=== PATIENT | female | born 1995 | race Caucasian/White ===

== ENCOUNTER 2025-01-17 22:25 | Inpatient (IN) | payer OTHER ==
[2025-01-17 23:00] LABS: Amphetamine,Urine NEGATIVE (NEGATIVE); Barbiturate,Urine NEGATIVE (NEGATIVE); Benzodiazepine,Urine NEGATIVE (NEGATIVE); Cocaine,Urine NEGATIVE (NEGATIVE); Methadone,Urine NEGATIVE (NEGATIVE); Opiate,Urine NEGATIVE (NEGATIVE); PCP,Urine NEGATIVE (NEGATIVE); THC,Urine NEGATIVE (NEGATIVE)
[2025-01-17] MEDS: Lactated Ringers 1,000 ML IV SCH (23:05)
[2025-01-17] MEDS: Nubain 10 MG/ML IV ONE (23:06)
[2025-01-17 23:14] LABS: Hematocrit 33.6 % (34.1-44.9); Hemoglobin 10.6 g/dL (11.2-15.7); Mean Corpuscular Hemoglobin 27.2 pg (25.6-32.2); Mean Corpuscular Hgb Concent. 31.5 g/dL (32.2-35.5); Platelet Count 271 x10^3/uL (182-369); Red Blood Count 3.90 x10^6/uL (3.93-5.22); White Blood Count 16.0 x10^3/uL (3.98-10.04)
[2025-01-17 23:19] LABS: Glucose, Urine Negative (Negative); Protein,Urine Dip Trace (Negative); RBC 0-2 /HPF (0-5)
[2025-01-17 23:30] LABS: INR 0.84 (0.8-3.0); PROTIME 9.3 SECONDS (9.4-12.5); PTT 25.1 SECONDS (25.1-36.5)
[2025-01-17 23:56] LABS: ABO TYPING O; RH TYPING NEGATIVE
[2025-01-18] MEDS ORDERED: Astramorph-Pf 5 MG/10 ML ONE (00:37)
[2025-01-18] MEDS ORDERED: Pitocin 10 UNITS/ML ONE (00:37)
[2025-01-18] MEDS ORDERED: CEFAZOLIN SODIUM ONE (00:38)
[2025-01-18] MEDS: SOD CITRATE-CITRIC ACID SOLN PO SCH (00:39)
[2025-01-18] MEDS: Reglan 10 MG/2 ML IV SCH (00:39)
[2025-01-18] MEDS: Pepcid 20 MG VIAL IV SCH (00:39)
[2025-01-18] MEDS ORDERED: PHENYLEPHRINE HCL ONE (00:40)
--- NOTE | 2025-01-18 00:41 | PCM.HP ---
History of Present Illness - Chief Complaint Chief Complaint: Labor History of Present Illness: is a 29 year old female at 39 2/7 wks EGA patient of Dr Bowman who arrived to labor and delivery c/o contractions, she was scheduled for repeat on 01/[address] Bowman but came to [place] because mom drove her to the hospital and can't see well in the dark. She is karolyn every 2 to 3 minutes with SVE 2-3cm with progression of effacement per nursing. She has a history of substance abuse, last used meth in October and has completed a recovery program, she denies alcohol or any other illicit drug use. urine triage is negative on arrival. - Review of Systems Abdominal/Gastrointestinal: Other (contractions) All Other Systems: Reviewed and Negative Medications & Allergies Home Medications: Home Medication List Famotidine 20 mg [Pepcid 20 MG] 20 mg PO DAILY 01/17/25 [History Confirmed 01/17/25] Hydroxyzine HCl 25 mg [Atarax 25 mg] 25 mg PO DAILY 01/17/25 [History Confirmed 01/17/25] Nitrofurantoin Monohyd/M-Cryst [Nitrofurantoin [place]-Mcr 100 mg] 100 mg PO DAILY 01/17/25 [History Confirmed 01/17/25] Pnv No.95/Ferrous Fum/Folic AC [ Vitamin Tablet] 1 tab PO DAILY 01/17/25 [History Confirmed 01/17/25] Allergies/Adverse Reactions: Allergies Allergy/AdvReac Type Severity Reaction Status Date / Time latex AdvReac Hives Verified 01/17/25 23:34 - Social History Smoking Status: Current every day smoker How long have you smoked: 16 years Alcohol: None Drug Use: none - Social Determinants of Health Will the patient participate in the screening: Yes Do you worry about a steady place to live?: No Do you have any problems with any of the following?: No known problems In the past 12 months,have you had to go without utilities?: No Have you or anyone in your house had to go without enough: No Transportation Issues: Yes Has anyone in your support network made you feel unsafe?: No Does the patient want assistance with any of the above?: No - Physical Exam Vital Signs: Vital Signs - 24 hr Temp Pulse Resp BP Pulse Ox 01/17/25 23:15 98.2 F 108 H 16 137/88 96 General Appearance: no apparent distress Neurologic Exam: alert, oriented x 3 Respiratory Exam: normal breath sounds, lungs clear, No respiratory distress Cardiovascular Exam: regular rate/rhythm, normal heart sounds, normal peripheral pulses Gastrointestinal/Abdomen Exam: soft, normal bowel sounds, other (gravid term uterus. FHR 130's category 1. [place] q2-3 min), No tenderness, No mass Results - Labs Lab/Micro Results: Lab Results-Last 24 Hours 01/17/25 01/17/25 01/17/25 Range/Units 22:30 22:35 23:00 WBC 16.0 H (3.98-10.04) x10^3/uL RBC 3.90 L (3.93-5.22) x10^6/uL Hgb 10.6 L (11.2-15.7) g/dL Hct 33.6 L (34.1-44.9) % MCV 86.2 (79.4-94.8) fL MCH 27.2 (25.6-32.2) pg MCHC 31.5 L (32.2-35.5) g/dL RDW 14.0 (11.7-14.4) % Plt Count 271 (182-369) x10^3/uL MPV 10.1 (9.4-12.3) fL PT (9.4-12.5) SECONDS INR (0.8-3.0) APTT (25.1-36.5) SECONDS TSH 3rd Generation (0.470-4.680) mIU/L Urine Color Yellow (Yellow) Urine Appearance Clear (Clear) Urine pH 7.5 (4.6-8.0) Ur Specific [place] 1.010 (1.005-1.030) Urine Protein Trace A (Negative) Urine Glucose (UA) Negative (Negative) mg/dL Urine Ketones Negative (Negative) Urine Blood Negative (Negative) Urine Nitrite Negative (Negative) Urine Bilirubin Negative (Negative) Urine Urobilinogen 0.2 (0.2) mg/dL Ur Leukocyte Esterase Small A (Negative) U Hyaline Cast (Auto) NONE SEEN (0-2) /LPF Urine Microscopic RBC 0-2 (0-5) /HPF Urine Microscopic WBC 11-20 A (0-5) /HPF Ur Epithelial Cells None Seen (None Seen) /HPF Urine Bacteria None Seen (None Seen) /HPF Urine Culture Reflexed YES (NO) Urine Opiates Level NEGATIVE (NEGATIVE) Ur Methadone NEGATIVE (NEGATIVE) Urine Barbiturates NEGATIVE (NEGATIVE) Ur Phencyclidine (PCP) NEGATIVE (NEGATIVE) Urine Amphetamine NEGATIVE (NEGATIVE) U Benzodiazepine Level NEGATIVE (NEGATIVE) Urine Cocaine NEGATIVE (NEGATIVE) Urine Marijuana (THC) NEGATIVE (NEGATIVE) ABO Group Rh Factor Antibody Screen (NEGATIVE) 01/17/25 01/17/25 01/17/25 Range/Units 23:00 23:00 23:00 WBC (3.98-10.04) x10^3/uL RBC (3.93-5.22) x10^6/uL Hgb (11.2-15.7) g/dL Hct (34.1-44.9) % MCV (79.4-94.8) fL MCH (25.6-32.2) pg MCHC (32.2-35.5) g/dL RDW (11.7-14.4) % Plt Count (182-369) x10^3/uL MPV (9.4-12.3) fL PT 9.3 L (9.4-12.5) SECONDS INR 0.84 (0.8-3.0) APTT 25.1 (25.1-36.5) SECONDS TSH 3rd Generation 0.429 L (0.470-4.680) mIU/L Urine Color (Yellow) Urine Appearance (Clear) Urine pH (4.6-8.0) Ur Specific [place] (1.005-1.030) Urine Protein (Negative) Urine Glucose (UA) (Negative) mg/dL Urine Ketones (Negative) Urine Blood (Negative) Urine Nitrite (Negative) Urine Bilirubin (Negative) Urine Urobilinogen (0.2) mg/dL Ur Leukocyte Esterase (Negative) U Hyaline Cast (Auto) (0-2) /LPF Urine Microscopic RBC (0-5) /HPF Urine Microscopic WBC (0-5) /HPF Ur Epithelial Cells (None Seen) /HPF Urine Bacteria (None Seen) /HPF Urine Culture Reflexed (NO) Urine Opiates Level (NEGATIVE) Ur Methadone (NEGATIVE) Urine Barbiturates (NEGATIVE) Ur Phencyclidine (PCP) (NEGATIVE) Urine Amphetamine (NEGATIVE) U Benzodiazepine Level (NEGATIVE) Urine Cocaine (NEGATIVE) Urine Marijuana (THC) (NEGATIVE) ABO Group O Rh Factor NEGATIVE Antibody Screen NEGATIVE (NEGATIVE) Assessment/Plan (1) Active labor at term Current Visit: Yes Status: Acute Assessment & Plan: discussed risks, benefits and alternatives to repeat including but not limited to bleeding, infection and risk to organs including bladder and ureters. patient voiced understanding and consents to repeat . OR team has been notified and anesthesia is present on the unit Code(s): TAC4728 - (2) History of delivery Current Visit: Yes Status: Acute Code(s): Z98.891 - HISTORY OF UTERINE SCAR FROM PREVIOUS SURGERY (3) Methamphetamine abuse in remission Current Visit: Yes Status: Acute Code(s): F15.11 - OTHER STIMULANT ABUSE, IN REMISSION
[2025-01-18] MEDS ORDERED: Lactated Ringers 1,000 ML IV ONE ×2 (00:42→01:46)
[2025-01-18] MEDS ORDERED: Naropin 0.5% 30 ML VIAL ONE (01:34)
[2025-01-18] MEDS ORDERED: Epinephrine Preservative Free 1 MG/ML ONE (01:34)
[2025-01-18] MEDS ORDERED: Mylicon 80MG PO PRN (02:36)
[2025-01-18] MEDS ORDERED: CORTISONE 1% CREAM TP PRN (02:36)
[2025-01-18] MEDS ORDERED: Dulcolax 10 MG SUPP PR PRN (02:36)
[2025-01-18] MEDS ORDERED: Anucort-HC SUPPOSITORY PR PRN (02:36)
[2025-01-18] MEDS ORDERED: DEMEROL 50 MG IV PRN (02:39)
[2025-01-18] MEDS ORDERED: MORPHINE SULFATE 2 MG INJ IV PRN (02:39)
[2025-01-18] MEDS ORDERED: Narcan 0.4 MG/ML IV PRN (02:39)
[2025-01-18] MEDS ORDERED: HOLD NARCOTIC ANALGESICS AND SEDATIVES X24 HR MC PRN (02:39)
[2025-01-18] MEDS ORDERED: BENADRYL 50 MG/ML IV PRN (02:39)
[2025-01-18] MEDS ORDERED: PERCOCET TABLET 5/325MG PO PRN (02:39)
[2025-01-18] MEDS ORDERED: Dextrose 5%-Lr IV Solution 1000 ML 1,000 ML IV SCH (03:00)
[2025-01-18] MEDS: Zofran 4 MG/2 ML VIAL IV PRN (03:24)
[2025-01-18] MEDS: CLARITIN 10 MG PO PRN (03:53)
[2025-01-18 04:17] LABS: Glucose, Urine Negative (Negative); Protein,Urine Dip Trace (Negative); RBC 0-2 /HPF (0-5); WBC >100 /HPF (0-5)
[2025-01-18] MEDS: Nubain 10 MG/ML IV PRN (05:56)
[2025-01-18] MEDS: TORAdol 30 mg Injection IV PRN (08:56)
[2025-01-18] MEDS: LANSINOH 40 GM TOP PRN (10:56)
[2025-01-18 12:10] LABS: BASOPHIL % 0.2 % (0.1-1.2); Basophil (Absolute #) 0.02 x10^3/uL (0.01-0.08); Eosinophil (Absolute #) 0.07 x10^3/uL (0.04-0.36); Hematocrit 24.3 % (34.1-44.9); Hemoglobin 7.7 g/dL (11.2-15.7); IMMATURE GRAN # 0.05 x10^3u/L (0.001-0.031); IMMATURE GRAN % 0.5 % (0.001-0.429); Lymphocyte (Absolute #) 1.16 x10^3/uL (1.18-3.74); Mean Corpuscular Hemoglobin 27.2 pg (25.6-32.2); Mean Corpuscular Hgb Concent. 31.7 g/dL (32.2-35.5); Monocyte (Absolute #) 0.43 x10^3/uL (0.24-0.86); NUCLEATED RBC # 0.00 x10^3u/L (0.00-0.012); NUCLEATED RBC % 0.0 % (0.00-0.2); Platelet Count 227 x10^3/uL (182-369); Red Blood Count 2.83 x10^6/uL (3.93-5.22); White Blood Count 10.4 x10^3/uL (3.98-10.04)
[2025-01-18] MEDS: FERREX 150 PO SCH (14:18)
[2025-01-18] MEDS: TYLENOL EXTRA STRENGTH 500 MG PO PRN (14:18)
[2025-01-18] MEDS: Docusate Sodium 100 MG PO SCH (17:22)
[2025-01-18] MEDS: Rhogam Plus 300 MCG IM ONE (20:03)
[2025-01-19] MEDS ORDERED: NORCO 5/325 MG PO PRN (01:30)
--- NOTE | 2025-01-19 07:46 | PCM.NOTE ---
Date and Time: 01/19/25 0744 Subjective Assessment: pod 1 sp csection pt resting in bed and doing well able to tolerate diet and ambulate vss afebrile abd; soft incision with dressing intact with no soilage noted uterus; firm lochia; mild hgb; 7.7 a/p sp csection pod 1 postop anemia will repeat cbc today anticipate discharge tomorrow Objective Data Vital Signs: Vital Signs - 24 hr Temp Pulse Resp BP Pulse Ox 01/19/25 02:15 97.9 F 109 H 20 123/78 94 L 01/18/25 20:00 98.1 F 111 H 18 120/76 94 L 01/18/25 16:00 98.1 F 105 H 16 117/65 95 01/18/25 15:00 97 01/18/25 14:00 97 01/18/25 12:00 98.6 F 94 H 16 116/68 94 L 01/18/25 11:00 94 L 01/18/25 10:00 95 01/18/25 09:00 95 01/18/25 08:00 98.1 F 86 16 111/66 95 Pain Assessment - Last Documented Pain Intensity [Anterior/ 1 Posterior] Pain Intensity 3 Pain Scale Used [facility] Intake and Output: Intake & Output 01/16/25 01/17/25 01/18/25 01/19/25 11:59 11:59 11:59 11:59 Intake Total 50 Output Total 950 450 Balance -950 -400 Weight 58.967 kg Lab Results: Lab Results-Last 24 Hours 01/18/25 Range/Units 12:00 WBC 10.4 H (3.98-10.04) x10^3/uL RBC 2.83 L (3.93-5.22) x10^6/uL Hgb 7.7 L D (11.2-15.7) g/dL Hct 24.3 L (34.1-44.9) % MCV 85.9 (79.4-94.8) fL MCH 27.2 (25.6-32.2) pg MCHC 31.7 L (32.2-35.5) g/dL RDW 14.1 (11.7-14.4) % Plt Count 227 (182-369) x10^3/uL MPV 9.7 (9.4-12.3) fL Gran % 83.4 H (34.0-71.1) % Immature Gran % (Auto) 0.5 H (0.001-0.429) % Nucleat RBC Rel Count 0.0 (0.00-0.2) % Eos # (Auto) 0.07 (0.04-0.36) x10^3/uL Immature Gran # (Auto) 0.05 H (0.001-0.031) x10^3u/L Absolute Lymphs (auto) 1.16 L (1.18-3.74) x10^3/uL Absolute Monos (auto) 0.43 (0.24-0.86) x10^3/uL Absolute Nucleated RBC 0.00 (0.00-0.012) x10^3u/L Lymphocytes % 11.1 L (19.3-51.7) % Monocytes % 4.1 L (4.7-12.5) % Eosinophils % 0.7 (0.7-5.8) % Basophils % 0.2 (0.1-1.2) % Absolute Granulocytes 8.68 H (1.56-6.13) x10^3/uL Basophils # 0.02 (0.01-0.08) x10^3/uL Medications: Medications Generic Name Dose Route Start Last Admin Trade Name Linwoodq PRN Reason Stop Dose Admin Acetaminophen 500 - 1,000 mg 01/18/25 02:36 01/18/25 14:18 Acetaminophen 500 Mg Tablet PO 02/17/25 02:35 1,000 mg Q4H PRN PRN Administration MILD PAIN Hydrocodone Bitart/Acetaminophen 1 tab 01/19/25 01:30 Hydrocodone/Apap 5/325 1 Tab Tablet PO 01/24/25 01:29 Q4H PRN PRN SEVERE PAIN Bisacodyl 10 mg 01/18/25 02:36 Bisacodyl 10 Mg Supp.Rect OH 02/17/25 02:35 PRN PRN CONSTIPATION Docusate Sodium 100 mg 01/18/25 10:00 01/18/25 20:27 Docusate Sodium 100 Mg Capsule PO 02/17/25 09:59 100 mg BID QIAN Administration Emollient Ointment 0 gm 01/18/25 02:36 01/18/25 10:56 Lansinoh 40 Gm Tube TOP 02/17/25 02:35 40 gm PRN PRN Administration PAIN Hydrocortisone 0.5 gm 01/18/25 02:36 Hydrocortisone 1% Cream 28 Gm Tube TP 02/17/25 02:35 PRN PRN ITCHING Hydrocortisone Acetate 25 mg 01/18/25 02:36 Hydrocortisone Acetate 25 Mg Supp.Rect OH 02/17/25 02:35 PRN PRN HEMORRHOIDS Ibuprofen 800 mg 01/18/25 02:36 Ibuprofen 400 Mg Tablet PO 02/17/25 02:35 Q6H PRN PRN MODERATE PAIN Ketorolac Tromethamine 30 mg 01/18/25 08:40 01/19/25 01:15 Ketorolac Tromethamine 30 Mg/Ml Inj IV 01/23/25 08:39 30 mg Q6H PRN PRN Administration PAIN Polysaccharide Iron Complex 150 mg 01/18/25 10:00 01/18/25 14:18 Iron Polysaccharides Complex 150 Mg Capsule PO 02/17/25 09:59 150 mg DAILY QIAN Administration Simethicone 80 mg 01/18/25 02:36 Simethicone 80 Mg Tab.Chew PO 02/17/25 02:35 QID PRN PRN INDIGESTION Discontinued Medications Generic Name Dose Route Start Last Admin Trade Name Freq PRN Reason Stop Dose Admin Cefazolin Sodium Confirm 01/18/25 00:38 Cefazolin Sodium 2 Gm Vial Administered 01/18/25 00:39 Dose 2 gm .ROUTE .STK-MED ONE Citric Acid/Sodium Citrate 30 ml 01/17/25 23:00 01/18/25 00:39 Citric Acid/Sodium Citrate 30 Ml Solution PO 01/18/25 02:57 30 ml 1HRPRIOR QIAN Administration Diphenhydramine HCl 12.5 - 25 mg 01/18/25 02:39 Diphenhydramine Hcl 50 Mg/Ml Vial IV 01/19/25 02:38 Q6H PRN PRN ITCHING Diphtheria/Tetanus/Acell Pertussis 0.5 ml 01/18/25 17:08 Tdap --Diph,Pertuss(Acell),Tet Vac/Pf 0.5 Ml Vial IM 01/18/25 17:09 .ONCE ONE Epinephrine HCl Confirm 01/18/25 01:34 Epinephrine 1 Mg/1 Ml Pf Amp 1 Mg/Ml Ml Administered 01/18/25 01:35 Dose 1 mg .ROUTE .STK-MED ONE Famotidine 20 mg 01/17/25 23:00 01/18/25 00:39 Famotidine 20 Mg/1 Vial IV 01/18/25 02:57 20 mg 1HRPRIOR QIAN Administration Lactated Ringer's 1,000 mls @ 999 mls/hr 01/17/25 23:00 01/17/25 23:05 Lactated Ringers IV 01/18/25 00:59 999 mls/hr .Q1H1M QIAN Administration Cefazolin Sodium 2 gm/ Sodium 100 mls @ 200 mls/hr 01/17/25 22:54 01/18/25 00:39 Chloride IV 01/17/25 23:23 200 mls/hr ONCALLTOOR ONE Administration Sodium Chloride Confirm 01/18/25 00:38 Sodium Chloride 0.9% Administered 01/18/25 00:39 Dose 100 mls @ ud .ROUTE .STK-MED ONE Dextrose/Lactated Ringer's 1,000 mls @ 125 mls/hr 01/18/25 03:00 Dextrose 5%-Lr Iv Solution 1000 Ml IV 02/17/25 02:59 .Q8H QIAN Lactated Ringer's Confirm 01/18/25 00:42 Lactated Ringers Administered 01/18/25 00:43 Dose 1,000 mls @ ud IV .STK-MED ONE Lactated Ringer's Confirm 01/18/25 01:46 Lactated Ringers Administered 01/18/25 01:47 Dose 1,000 mls @ ud IV .STK-MED ONE Loratadine 10 mg 01/18/25 02:39 01/18/25 03:53 Loratadine 10 Mg Tablet PO 01/19/25 02:38 10 mg QDP PRN Administration ITCHING Meperidine HCl 12.5 mg 01/18/25 02:39 Meperidine Hcl 50 Mg/Ml Carp IV 01/19/25 02:38 PRN PRN SHAKING/TREMORS Metoclopramide HCl 10 mg 01/17/25 23:00 01/18/25 00:39 Metoclopramide Hcl 10 Mg/2 Ml Vial IV 01/18/25 02:57 10 mg 1HRPRIOR QIAN Administration Morphine Sulfate Confirm 01/18/25 00:37 Morphine Sulfate 5 Mg/10 Ml Pf Ampul Administered 01/18/25 00:38 Dose 5 mg .ROUTE .STK-MED ONE Morphine Sulfate 2 mg 01/18/25 02:39 Morphine Sulfate 2 Mg/Ml Inj IV 01/19/25 02:38 .Q30MIN PRN PRN SEVERE PAIN Nalbuphine HCl 5 mg 01/17/25 22:50 01/17/25 23:06 Nalbuphine Hcl 10 Mg/Ml Ampul IV 01/17/25 22:51 5 mg ONCE ONE Administration Nalbuphine HCl 5 mg 01/18/25 02:39 01/18/25 05:56 Nalbuphine Hcl 10 Mg/Ml Ampul IV 01/19/25 02:38 5 mg Q6H PRN PRN Administration ITCHING Naloxone HCl 0.1 mg 01/18/25 02:39 Naloxone Hcl 0.4 Mg/Ml Ml IV 01/19/25 02:38 PRN PRN RESPIRATORY DEPRESSION Non-Formulary Medication 1 each 01/18/25 02:39 Hold Narcotic Analgesics/Sedatives 1 Each Each 01/19/25 02:38 PRN PRN neuraxial orders Ondansetron HCl 4 mg 01/18/25 02:39 01/18/25 03:24 Ondansetron Hcl 4 Mg/2 Ml Vial IV 01/19/25 02:38 4 mg PRN PRN Administration NAUSEA Oxycodone/Acetaminophen 1 - 2 tab 01/18/25 02:39 Oxycodone Hcl/Apap 5 Mg/325 Mg Tablet PO 01/19/25 02:38 Q4H PRN PRN MODERATE PAIN Oxytocin Confirm 01/18/25 00:37 Oxytocin 10 Units/Ml 10 Units/Ml Vial Administered 01/18/25 00:38 Dose 20 units .ROUTE .STK-MED ONE Phenylephrine HCl Confirm 01/18/25 00:40 Phenylephrine 10 Mg/Ml Vial Administered 01/18/25 00:41 Dose 10 mg .ROUTE .STK-MED ONE Rho Immune Globulin 300 mcg 01/18/25 11:00 01/18/25 20:03 Rho(D) Immune Globulin 300 Mcg/Syr Ml IM 01/18/25 11:01 300 mcg .ONCE ONE Administration Ropivacaine Confirm 01/18/25 01:34 Ropivacaine Hcl 5 Mg/Ml 30ml Vial Administered 09/16/25 01:35 Dose 150 mg .ROUTE .STK-MED ONE Assessment/Plan (1) S/P section Current Visit: Yes Status: Acute Code(s): Z98.891 - HISTORY OF UTERINE SCAR FROM PREVIOUS SURGERY (2) Postoperative anemia due to chronic blood loss Current Visit: Yes Status: Acute Code(s): D50.0 - IRON DEFICIENCY ANEMIA SECONDARY TO BLOOD LOSS (CHRONIC)
[2025-01-19 09:04] LABS: RPR Non Reactive (Non Reactive); Rubella Antibodies, IgG 5.97 index (Immune >0.99)
--- NOTE | 2025-01-19 10:06 | OP ---
SURGERY DATE/TIME: 01/18/25 4769-1122 PREOPERATIVE DIAGNOSES: 1) Term intrauterine in active labor. 2) History of prior section. POSTOPERATIVE DIAGNOSES: 1) Term intrauterine in active labor. 2) History of prior section. PROCEDURE: Repeat low transverse section. SURGEON: Moose Dorado MD. ANESTHESIA: Spinal by Leandro Helm CRNA. QUANTITATIVE BLOOD LOSS: 600 mL. URINE: 100 mL of clear straw-colored urine. SPECIMEN: Placenta was sent for pathology. DESCRIPTION OF PROCEDURE AND FINDINGS: After informed written consent was obtained, the patient was taken to the operating room. She underwent spinal anesthesia, had a [place] catheter inserted, and then was prepped and draped in usual sterile fashion. After adequate level of anesthesia was assessed, low transverse skin incision was made by through previous abdominal scar down through the subcutaneous fat to the level of the fascia. Fascia was nicked on both sides of the midline and extended into horizontal using curved Olsen scissors. Superior free edge of the fascia was grasped with Ernesto clamps and the underlying rectus muscles were dissected free. The same was repeated inferiorly. Peritoneal cavity was entered bluntly and extended into horizontal. Bladder flap was then created and reflected over lower uterine segment. Horizontal uterine incision was made by knife, carried down to the uterus to level of the amniotic membranes which were carefully artificially ruptured which revealed thin meconium-stained fluid. Viable female infant was delivered from the vertex presentation with a strong cry immediately upon delivery. Oropharynx and nares were bulb suctioned free, cord was clamped and cut, and she was handed off to the waiting nursery team. Placenta was manually extracted and the uterus was exteriorized. Uterine cavity was sponge curetted clean with a lap sponge and uterine incision was closed with #1 chromic in a running locked fashion. Good closure and good hemostasis were achieved at this level. Posterior cul-de-sac was wiped free of blood and clot and the uterus was returned to the peritoneal cavity. Lateral gutters were wiped free of blood and clot with moist lap sponges and the uterus was noted to be hemostatic with good closure. The fascia was closed with 0 Vicryl in a running fashion. Good closure and good hemostasis were achieved at this level. Subcutaneous fat was irrigated with warm sterile saline, any areas of bleeding were cauterized with electrocautery, and the skin layer was closed with 4-0 undyed Vicryl in a running subcuticular fashion. Steri-Strips and an occlusive dressing were placed over the incision. The patient was transferred to the recovery room in good condition.
[2025-01-19 10:39] LABS: BASOPHIL % 0.2 % (0.1-1.2); Basophil (Absolute #) 0.02 x10^3/uL (0.01-0.08); Eosinophil (Absolute #) 0.12 x10^3/uL (0.04-0.36); Hematocrit 25.4 % (34.1-44.9); Hemoglobin 7.9 g/dL (11.2-15.7); IMMATURE GRAN # 0.09 x10^3u/L (0.001-0.031); IMMATURE GRAN % 0.7 % (0.001-0.429); Lymphocyte (Absolute #) 1.25 x10^3/uL (1.18-3.74); Mean Corpuscular Hemoglobin 27.1 pg (25.6-32.2); Mean Corpuscular Hgb Concent. 31.1 g/dL (32.2-35.5); Monocyte (Absolute #) 0.51 x10^3/uL (0.24-0.86); NUCLEATED RBC # 0.00 x10^3u/L (0.00-0.012); NUCLEATED RBC % 0.0 % (0.00-0.2); Platelet Count 285 x10^3/uL (182-369); Red Blood Count 2.92 x10^6/uL (3.93-5.22); White Blood Count 12.7 x10^3/uL (3.98-10.04)
[2025-01-19] MEDS: Adalat CC 30 MG TABLET PO ONE (17:02)
[2025-01-19 17:45] LABS: Calcium 8.9 mg/dL (8.4-10.2); Carbon Dioxide 22 mmol/L (22-30); Creatinine 1 0.77 mg/dL (0.52-1.04); EST GLOMERULAR FILTRATION RATE 105.7 ML/MIN; Glucose 118 mg/dL (74-106); Potassium 4.1 mmol/L (3.5-5.1); SGOT/AST 24 U/L (14-36); SGPT/ALT 14 U/L (0-35); Total Protein 6.3 g/dL (6.3-8.2); Uric Acid 5.4 mg/dL (2.6-6.0)
[2025-01-19 17:48] LABS: Creatinine, Urine Random 17.0 mg/dl; Protein Creatinine Ratio, Ran. 1.12 mg/mg (0.0-0.15); TP, Urine Random 19.0 mg/dl (<12)
[2025-01-19] MEDS ORDERED: Lactated Ringers 500 ML IV ONE (18:13)
[2025-01-19] MEDS ORDERED: Magnesium Sulfate 40 Gm/1000 Ml H2O Premix*** 1,000 ML IV ONE (18:13)
[2025-01-19 18:25] LABS: Glucose, Urine Negative (Negative); Protein,Urine Dip Negative (Negative)
[2025-01-19 18:25] LABS: INR 0.84 (0.8-3.0); PROTIME 9.3 SECONDS (9.4-12.5); PTT 25.4 SECONDS (25.1-36.5)
[2025-01-19] MEDS: Magnesium Sulfate 40 Gm/1000 Ml H2O Premix*** 1,000 ML IV SCH (18:50)
[2025-01-19] MEDS: Lactated Ringers 1,000 ML IV SCH (18:53)
[2025-01-19] MEDS ORDERED: ATARAX 25 MG ONE (22:14)
[2025-01-19] MEDS: ATARAX 25 MG PO PRN (22:15)
[2025-01-20] MEDS ORDERED: Calcium Gluconate 10% 1000 MG 1,000 MG in Sodium Chloride 0.9% 100 ML IV PRN (05:34)
--- NOTE | 2025-01-20 08:57 | PCM.NOTE ---
Date and Time: 01/20/25854 Subjective Assessment: event of yesterday reviewed, patient became hypertensive with elevated protein:creat ratio. mag was stopped this am by nursing due to concern of toxicity/intolerance. she is normotensive and had a massive diuresis overnight on review. she is currently on 2L NC, coughed all day yesterday per nursing, she reports thick sputum production. Objective Exam General Appearance: no apparent distress Neurologic Exam: alert, oriented x 3 Respiratory Exam: rhonchi, No respiratory distress Cardiovascular Exam: regular rate/rhythm, normal heart sounds Gastrointestinal/Abdomen Exam: soft, other (dressing clean, dry, intact), No tenderness, No mass Extremity Exam: normal inspection, normal range of motion, No pedal edema, No swelling Objective Data Vital Signs: Vital Signs - 24 hr Temp Pulse Resp BP BP Pulse Ox 01/20/25 05:51 94 L 01/20/25 05:00 114 H 18 117/72 117/72 88 L 01/20/25 04:00 129 H 121/71 01/20/25 03:00 125 H 110/83 01/20/25 02:00 120 H 134/87 01/20/25 01:00 126 H 134/89 01/20/25 00:00 130 H 134/94 01/19/25 23:00 124 H 135/78 01/19/25 22:00 121 H 145/96 01/19/25 21:00 124 H 135/93 01/19/25 20:00 97.8 F 121 H 20 140/93 140/93 97 01/19/25 17:30 130/87 01/19/25 16:00 111 H 18 140/94 97 Pain Assessment - Last Documented Pain Intensity [Anterior/ 5 Posterior] Pain Intensity 7 Pain Scale Used 0-10 Pain Scale Intake and Output: Intake & Output 01/17/25 01/18/25 01/19/25 01/20/25 11:59 11:59 11:59 11:59 Intake Total 50 3704 Output Total 188 118 0538 Balance -950 -400 -801 Weight 58.967 kg Lab Results: Lab Results-Last 24 Hours 01/17/25 01/17/25 01/17/25 Range/Units 23:00 23:00 23:00 WBC (3.98-10.04) x10^3/uL RBC (3.93-5.22) x10^6/uL Hgb (11.2-15.7) g/dL Hct (34.1-44.9) % MCV (79.4-94.8) fL MCH (25.6-32.2) pg MCHC (32.2-35.5) g/dL RDW (11.7-14.4) % Plt Count (182-369) x10^3/uL MPV (9.4-12.3) fL Gran % (34.0-71.1) % Immature Gran % (Auto) (0.001-0.429) % Nucleat RBC Rel Count (0.00-0.2) % Eos # (Auto) (0.04-0.36) x10^3/uL Immature Gran # (Auto) (0.001-0.031) x10^3u/L Absolute Lymphs (auto) (1.18-3.74) x10^3/uL Absolute Monos (auto) (0.24-0.86) x10^3/uL Absolute Nucleated RBC (0.00-0.012) x10^3u/L Lymphocytes % (19.3-51.7) % Monocytes % (4.7-12.5) % Eosinophils % (0.7-5.8) % Basophils % (0.1-1.2) % Absolute Granulocytes (1.56-6.13) x10^3/uL Basophils # (0.01-0.08) x10^3/uL Hemoglobin A 97.7 (96.4-98.8) % Hemoglobin A2 2.3 (1.8-3.2) % Hemoglobin F 0.0 (0.0-2.0) % Hemoglobin S 0.0 (0.0) % Hemoglobin Interpret Comment (.) PT (9.4-12.5) SECONDS INR (0.8-3.0) APTT (25.1-36.5) SECONDS Sodium (135-145) mmol/L Potassium (3.5-5.1) mmol/L Chloride (98-107) mmol/L Carbon Dioxide (22-30) mmol/L Anion Gap (5-15) MEQ/L BUN (7-17) mg/dL Creatinine (0.52-1.04) mg/dL Estimated GFR ML/MIN Glucose (74-106) mg/dL Uric Acid (2.6-6.0) mg/dL Calcium (8.4-10.2) mg/dL Magnesium (1.6-2.3) mg/dL Total Bilirubin (0.2-1.3) mg/dL AST (14-36) U/L ALT (0-35) U/L Alkaline Phosphatase (38-126) U/L Serum Total Protein (6.3-8.2) g/dL Albumin (3.5-5.0) g/dL Urine Color (Yellow) Urine Appearance (Clear) Urine pH (4.6-8.0) Ur Specific [place] (1.005-1.030) Urine Protein (Negative) Urine Glucose (UA) (Negative) mg/dL Urine Ketones (Negative) Urine Blood (Negative) Urine Nitrite (Negative) Urine Bilirubin (Negative) Urine Urobilinogen (0.2) mg/dL Ur Leukocyte Esterase (Negative) U Hyaline Cast (Auto) (0-2) /LPF Urine Microscopic RBC (0-5) /HPF Urine Microscopic WBC (0-5) /HPF Ur Epithelial Cells (None Seen) /HPF Urine Bacteria (None Seen) /HPF Urine Culture Reflexed (NO) Ur Random Creatinine mg/dl U Random Total Protein (<12) mg/dl U [place] Prot/Creat Ratio (0.0-0.15) mg/mg RPR Non Reactive (Non Reactive) Hep Bs Antigen Negative (Negative) Hepatitis C Antibody Non Reactive (Non Reactive) HIV 1&2 Ab/P24 Ag 4thGn Non Reactive (Non Reactive) Rubella IgG Antibody 5.97 (Immune >0.99) index VZV IgG Antibody Reactive (Non Reactive) 01/19/25 01/19/25 01/19/25 Range/Units 10:30 16:45 17:30 WBC 12.7 H (3.98-10.04) x10^3/uL RBC 2.92 L (3.93-5.22) x10^6/uL Hgb 7.9 L (11.2-15.7) g/dL Hct 25.4 L (34.1-44.9) % MCV 87.0 (79.4-94.8) fL MCH 27.1 (25.6-32.2) pg MCHC 31.1 L (32.2-35.5) g/dL RDW 14.1 (11.7-14.4) % Plt Count 285 (182-369) x10^3/uL MPV 9.3 L (9.4-12.3) fL Gran % 84.3 H (34.0-71.1) % Immature Gran % (Auto) 0.7 H (0.001-0.429) % Nucleat RBC Rel Count 0.0 (0.00-0.2) % Eos # (Auto) 0.12 (0.04-0.36) x10^3/uL Immature Gran # (Auto) 0.09 H (0.001-0.031) x10^3u/L Absolute Lymphs (auto) 1.25 (1.18-3.74) x10^3/uL Absolute Monos (auto) 0.51 (0.24-0.86) x10^3/uL Absolute Nucleated RBC 0.00 (0.00-0.012) x10^3u/L Lymphocytes % 9.9 L (19.3-51.7) % Monocytes % 4.0 L (4.7-12.5) % Eosinophils % 0.9 (0.7-5.8) % Basophils % 0.2 (0.1-1.2) % Absolute Granulocytes 10.67 H (1.56-6.13) x10^3/uL Basophils # 0.02 (0.01-0.08) x10^3/uL Hemoglobin A (96.4-98.8) % Hemoglobin A2 (1.8-3.2) % Hemoglobin F (0.0-2.0) % Hemoglobin S (0.0) % Hemoglobin Interpret (.) PT (9.4-12.5) SECONDS INR (0.8-3.0) APTT (25.1-36.5) SECONDS Sodium 136 (135-145) mmol/L Potassium 4.1 (3.5-5.1) mmol/L Chloride 107 (98-107) mmol/L Carbon Dioxide 22 (22-30) mmol/L Anion Gap 10.9 (5-15) MEQ/L BUN 8 (7-17) mg/dL Creatinine 0.77 (0.52-1.04) mg/dL Estimated GFR 105.7 ML/MIN Glucose 118 H (74-106) mg/dL Uric Acid 5.4 (2.6-6.0) mg/dL Calcium 8.9 (8.4-10.2) mg/dL Magnesium (1.6-2.3) mg/dL Total Bilirubin < 0.10 L (0.2-1.3) mg/dL AST 24 (14-36) U/L ALT 14 (0-35) U/L Alkaline Phosphatase 135 H (38-126) U/L Serum Total Protein 6.3 (6.3-8.2) g/dL Albumin 3.1 L (3.5-5.0) g/dL Urine Color Yellow (Yellow) Urine Appearance Clear (Clear) Urine pH 7.0 (4.6-8.0) Ur Specific [place] <=1.005 (1.005-1.030) Urine Protein Negative (Negative) Urine Glucose (UA) Negative (Negative) mg/dL Urine Ketones Negative (Negative) Urine Blood Moderate A (Negative) Urine Nitrite Negative (Negative) Urine Bilirubin Negative (Negative) Urine Urobilinogen 0.2 (0.2) mg/dL Ur Leukocyte Esterase Moderate A (Negative) U Hyaline Cast (Auto) NONE SEEN (0-2) /LPF Urine Microscopic RBC 6-10 A (0-5) /HPF Urine Microscopic WBC 11-20 A (0-5) /HPF Ur Epithelial Cells None Seen (None Seen) /HPF Urine Bacteria None Seen (None Seen) /HPF Urine Culture Reflexed YES (NO) Ur Random Creatinine mg/dl U Random Total Protein (<12) mg/dl U [place] Prot/Creat Ratio (0.0-0.15) mg/mg RPR (Non Reactive) Hep Bs Antigen (Negative) Hepatitis C Antibody (Non Reactive) HIV 1&2 Ab/P24 Ag 4thGn (Non Reactive) Rubella IgG Antibody (Immune >0.99) index VZV IgG Antibody (Non Reactive) 01/19/25 01/19/25 01/19/25 Range/Units 17:30 17:30 17:30 WBC (3.98-10.04) x10^3/uL RBC (3.93-5.22) x10^6/uL Hgb (11.2-15.7) g/dL Hct (34.1-44.9) % MCV (79.4-94.8) fL MCH (25.6-32.2) pg MCHC (32.2-35.5) g/dL RDW (11.7-14.4) % Plt Count (182-369) x10^3/uL MPV (9.4-12.3) fL Gran % (34.0-71.1) % Immature Gran % (Auto) (0.001-0.429) % Nucleat RBC Rel Count (0.00-0.2) % Eos # (Auto) (0.04-0.36) x10^3/uL Immature Gran # (Auto) (0.001-0.031) x10^3u/L Absolute Lymphs (auto) (1.18-3.74) x10^3/uL Absolute Monos (auto) (0.24-0.86) x10^3/uL Absolute Nucleated RBC (0.00-0.012) x10^3u/L Lymphocytes % (19.3-51.7) % Monocytes % (4.7-12.5) % Eosinophils % (0.7-5.8) % Basophils % (0.1-1.2) % Absolute Granulocytes (1.56-6.13) x10^3/uL Basophils # (0.01-0.08) x10^3/uL Hemoglobin A (96.4-98.8) % Hemoglobin A2 (1.8-3.2) % Hemoglobin F (0.0-2.0) % Hemoglobin S (0.0) % Hemoglobin Interpret (.) PT 9.3 L (9.4-12.5) SECONDS INR 0.84 (0.8-3.0) APTT 25.4 (25.1-36.5) SECONDS Sodium (135-145) mmol/L Potassium (3.5-5.1) mmol/L Chloride (98-107) mmol/L Carbon Dioxide (22-30) mmol/L Anion Gap (5-15) MEQ/L BUN (7-17) mg/dL Creatinine (0.52-1.04) mg/dL Estimated GFR ML/MIN Glucose (74-106) mg/dL Uric Acid (2.6-6.0) mg/dL Calcium (8.4-10.2) mg/dL Magnesium 1.4 L (1.6-2.3) mg/dL Total Bilirubin (0.2-1.3) mg/dL AST (14-36) U/L ALT (0-35) U/L Alkaline Phosphatase (38-126) U/L Serum Total Protein (6.3-8.2) g/dL Albumin (3.5-5.0) g/dL Urine Color (Yellow) Urine Appearance (Clear) Urine pH (4.6-8.0) Ur Specific [place] (1.005-1.030) Urine Protein (Negative) Urine Glucose (UA) (Negative) mg/dL Urine Ketones (Negative) Urine Blood (Negative) Urine Nitrite (Negative) Urine Bilirubin (Negative) Urine Urobilinogen (0.2) mg/dL Ur Leukocyte Esterase (Negative) U Hyaline Cast (Auto) (0-2) /LPF Urine Microscopic RBC (0-5) /HPF Urine Microscopic WBC (0-5) /HPF Ur Epithelial Cells (None Seen) /HPF Urine Bacteria (None Seen) /HPF Urine Culture Reflexed (NO) Ur Random Creatinine 17.0 mg/dl U Random Total Protein 19.0 (<12) mg/dl U [place] Prot/Creat Ratio 1.12 H (0.0-0.15) mg/mg RPR (Non Reactive) Hep Bs Antigen (Negative) Hepatitis C Antibody (Non Reactive) HIV 1&2 Ab/P24 Ag 4thGn (Non Reactive) Rubella IgG Antibody (Immune >0.99) index VZV IgG Antibody (Non Reactive) 01/20/25 01/20/25 Range/Units 01:20 05:15 WBC (3.98-10.04) x10^3/uL RBC (3.93-5.22) x10^6/uL Hgb (11.2-15.7) g/dL Hct (34.1-44.9) % MCV (79.4-94.8) fL MCH (25.6-32.2) pg MCHC (32.2-35.5) g/dL RDW (11.7-14.4) % Plt Count (182-369) x10^3/uL MPV (9.4-12.3) fL Gran % (34.0-71.1) % Immature Gran % (Auto) (0.001-0.429) % Nucleat RBC Rel Count (0.00-0.2) % Eos # (Auto) (0.04-0.36) x10^3/uL Immature Gran # (Auto) (0.001-0.031) x10^3u/L Absolute Lymphs (auto) (1.18-3.74) x10^3/uL Absolute Monos (auto) (0.24-0.86) x10^3/uL Absolute Nucleated RBC (0.00-0.012) x10^3u/L Lymphocytes % (19.3-51.7) % Monocytes % (4.7-12.5) % Eosinophils % (0.7-5.8) % Basophils % (0.1-1.2) % Absolute Granulocytes (1.56-6.13) x10^3/uL Basophils # (0.01-0.08) x10^3/uL Hemoglobin A (96.4-98.8) % Hemoglobin A2 (1.8-3.2) % Hemoglobin F (0.0-2.0) % Hemoglobin S (0.0) % Hemoglobin Interpret (.) PT (9.4-12.5) SECONDS INR (0.8-3.0) APTT (25.1-36.5) SECONDS Sodium (135-145) mmol/L Potassium (3.5-5.1) mmol/L Chloride (98-107) mmol/L Carbon Dioxide (22-30) mmol/L Anion Gap (5-15) MEQ/L BUN (7-17) mg/dL Creatinine (0.52-1.04) mg/dL Estimated GFR ML/MIN Glucose (74-106) mg/dL Uric Acid (2.6-6.0) mg/dL Calcium (8.4-10.2) mg/dL Magnesium 5.5 H* 5.3 H* (1.6-2.3) mg/dL Total Bilirubin (0.2-1.3) mg/dL AST (14-36) U/L ALT (0-35) U/L Alkaline Phosphatase (38-126) U/L Serum Total Protein (6.3-8.2) g/dL Albumin (3.5-5.0) g/dL Urine Color (Yellow) Urine Appearance (Clear) Urine pH (4.6-8.0) Ur Specific [place] (1.005-1.030) Urine Protein (Negative) Urine Glucose (UA) (Negative) mg/dL Urine Ketones (Negative) Urine Blood (Negative) Urine Nitrite (Negative) Urine Bilirubin (Negative) Urine Urobilinogen (0.2) mg/dL Ur Leukocyte Esterase (Negative) U Hyaline Cast (Auto) (0-2) /LPF Urine Microscopic RBC (0-5) /HPF Urine Microscopic WBC (0-5) /HPF Ur Epithelial Cells (None Seen) /HPF Urine Bacteria (None Seen) /HPF Urine Culture Reflexed (NO) Ur Random Creatinine mg/dl U Random Total Protein (<12) mg/dl U [place] Prot/Creat Ratio (0.0-0.15) mg/mg RPR (Non Reactive) Hep Bs Antigen (Negative) Hepatitis C Antibody (Non Reactive) HIV 1&2 Ab/P24 Ag 4thGn (Non Reactive) Rubella IgG Antibody (Immune >0.99) index VZV IgG Antibody (Non Reactive) Radiology Exams: Radiology Procedures Category Date Time Status CHEST 1 VIEW (PORTABLE) Stat Exams 01/20/25 08:53 Ordered Medications: Medications Generic Name Dose Route Start Last Admin Trade Name Freq PRN Reason Stop Dose Admin Acetaminophen 500 - 1,000 mg 01/18/25 02:36 01/20/25 04:34 Acetaminophen 500 Mg Tablet PO 02/17/25 02:35 1,000 mg Q4H PRN PRN Administration MILD PAIN Hydrocodone Bitart/Acetaminophen 1 tab 01/19/25 01:30 Hydrocodone/Apap 5/325 1 Tab Tablet PO 01/24/25 01:29 Q4H PRN PRN SEVERE PAIN Bisacodyl 10 mg 01/18/25 02:36 Bisacodyl 10 Mg Supp.Rect NM 02/17/25 02:35 PRN PRN CONSTIPATION Docusate Sodium 100 mg 01/18/25 10:00 01/19/25 22:15 Docusate Sodium 100 Mg Capsule PO 02/17/25 09:59 100 mg BID QIAN Administration Emollient Ointment 0 gm 01/18/25 02:36 01/18/25 10:56 Lansinoh 40 Gm Tube TOP 02/17/25 02:35 40 gm PRN PRN Administration PAIN Hydrocortisone 0.5 gm 01/18/25 02:36 Hydrocortisone 1% Cream 28 Gm Tube TP 02/17/25 02:35 PRN PRN ITCHING Hydrocortisone Acetate 25 mg 01/18/25 02:36 Hydrocortisone Acetate 25 Mg Supp.Rect NM 02/17/25 02:35 PRN PRN HEMORRHOIDS Hydroxyzine HCl 25 mg 01/19/25 21:24 01/19/25 22:15 Hydroxyzine Hcl 25 Mg Tablet PO 02/18/25 21:23 25 mg TID PRN PRN Administration ANXIETY Lactated Ringer's 1,000 mls @ 125 mls/hr 01/19/25 18:30 01/19/25 18:53 Lactated Ringers IV 02/18/25 18:29 125 mls/hr .Q8H QIAN Administration Magnesium Sulfate 1,000 mls @ 50 mls/hr 01/19/25 18:30 01/19/25 18:50 Magnesium Sulfate 40 Gm/1000 Ml H2o Premix IV 02/18/25 18:29 50 mls/hr .Q20H QIAN Administration Calcium Gluconate 1,000 mg/ 110 mls @ 220 mls/hr 01/20/25 05:34 Sodium Chloride IV 02/19/25 05:33 PRN PRN OVERDOSE Ibuprofen 800 mg 01/18/25 02:36 Ibuprofen 400 Mg Tablet PO 02/17/25 02:35 Q6H PRN PRN MODERATE PAIN Ketorolac Tromethamine 30 mg 01/18/25 08:40 01/20/25 04:34 Ketorolac Tromethamine 30 Mg/Ml Inj IV 01/23/25 08:39 30 mg Q6H PRN PRN Administration PAIN Polysaccharide Iron Complex 150 mg 01/18/25 10:00 01/19/25 10:39 Iron Polysaccharides Complex 150 Mg Capsule PO 02/17/25 09:59 150 mg DAILY QIAN Administration Simethicone 80 mg 01/18/25 02:36 Simethicone 80 Mg Tab.Chew PO 02/17/25 02:35 QID PRN PRN INDIGESTION Discontinued Medications Generic Name Dose Route Start Last Admin Trade Name Freq PRN Reason Stop Dose Admin Cefazolin Sodium Confirm 01/18/25 00:38 Cefazolin Sodium 2 Gm Vial Administered 01/18/25 00:39 Dose 2 gm .ROUTE .STK-MED ONE Citric Acid/Sodium Citrate 30 ml 01/17/25 23:00 01/18/25 00:39 Citric Acid/Sodium Citrate 30 Ml Solution PO 01/18/25 02:57 30 ml 1HRPRIOR QIAN Administration Diphenhydramine HCl 12.5 - 25 mg 01/18/25 02:39 Diphenhydramine Hcl 50 Mg/Ml Vial IV 01/19/25 02:38 Q6H PRN PRN ITCHING Diphtheria/Tetanus/Acell Pertussis 0.5 ml 01/18/25 17:08 Tdap --Diph,Pertuss(Acell),Tet Vac/Pf 0.5 Ml Vial IM 01/18/25 17:09 .ONCE ONE Epinephrine HCl Confirm 01/18/25 01:34 Epinephrine 1 Mg/1 Ml Pf Amp 1 Mg/Ml Ml Administered 01/18/25 01:35 Dose 1 mg .ROUTE .STK-MED ONE Famotidine 20 mg 01/17/25 23:00 01/18/25 00:39 Famotidine 20 Mg/1 Vial IV 01/18/25 02:57 20 mg 1HRPRIOR QIAN Administration Hydroxyzine HCl Confirm 01/19/25 22:14 Hydroxyzine Hcl 25 Mg Tablet Administered 01/19/25 22:15 Dose 25 mg .ROUTE .STK-MED ONE Lactated Ringer's 1,000 mls @ 999 mls/hr 01/17/25 23:00 01/17/25 23:05 Lactated Ringers IV 01/18/25 00:59 999 mls/hr .Q1H1M QIAN Administration Cefazolin Sodium 2 gm/ Sodium 100 mls @ 200 mls/hr 01/17/25 22:54 01/18/25 00:39 Chloride IV 01/17/25 23:23 200 mls/hr ONCALLTOOR ONE Administration Sodium Chloride Confirm 01/18/25 00:38 Sodium Chloride 0.9% Administered 01/18/25 00:39 Dose 100 mls @ ud .ROUTE .STK-MED ONE Dextrose/Lactated Ringer's 1,000 mls @ 125 mls/hr 01/18/25 03:00 Dextrose 5%-Lr Iv Solution 1000 Ml IV 02/17/25 02:59 .Q8H QIAN Lactated Ringer's Confirm 01/18/25 00:42 Lactated Ringers Administered 01/18/25 00:43 Dose 1,000 mls @ ud IV .STK-MED ONE Lactated Ringer's Confirm 01/18/25 01:46 Lactated Ringers Administered 01/18/25 01:47 Dose 1,000 mls @ ud IV .STK-MED ONE Magnesium Sulfate Confirm 01/19/25 18:13 Magnesium Sulfate 40 Gm/1000 Ml H2o Premix Administered 01/19/25 18:14 Dose 1,000 mls @ ud IV .STK-MED ONE Lactated Ringer's Confirm 01/19/25 18:13 Lactated Ringers Administered 01/19/25 18:14 Dose 500 mls @ ud IV .STK-MED ONE Loratadine 10 mg 01/18/25 02:39 01/18/25 03:53 Loratadine 10 Mg Tablet PO 01/19/25 02:38 10 mg QDP PRN Administration ITCHING Meperidine HCl 12.5 mg 01/18/25 02:39 Meperidine Hcl 50 Mg/Ml Carp IV 01/19/25 02:38 PRN PRN SHAKING/TREMORS Metoclopramide HCl 10 mg 01/17/25 23:00 01/18/25 00:39 Metoclopramide Hcl 10 Mg/2 Ml Vial IV 01/18/25 02:57 10 mg 1HRPRIOR QIAN Administration Morphine Sulfate Confirm 01/18/25 00:37 Morphine Sulfate 5 Mg/10 Ml Pf Ampul Administered 01/18/25 00:38 Dose 5 mg .ROUTE .STK-MED ONE Morphine Sulfate 2 mg 01/18/25 02:39 Morphine Sulfate 2 Mg/Ml Inj IV 01/19/25 02:38 .Q30MIN PRN PRN SEVERE PAIN Nalbuphine HCl 5 mg 01/17/25 22:50 01/17/25 23:06 Nalbuphine Hcl 10 Mg/Ml Ampul IV 01/17/25 22:51 5 mg ONCE ONE Administration Nalbuphine HCl 5 mg 01/18/25 02:39 01/18/25 05:56 Nalbuphine Hcl 10 Mg/Ml Ampul IV 01/19/25 02:38 5 mg Q6H PRN PRN Administration ITCHING Naloxone HCl 0.1 mg 01/18/25 02:39 Naloxone Hcl 0.4 Mg/Ml Ml IV 01/19/25 02:38 PRN PRN RESPIRATORY DEPRESSION Nifedipine 30 mg 01/20/25 16:45 01/19/25 17:02 Nifedipine Xl 30 Mg Tablet.Sa PO 01/20/25 16:46 30 mg ONCE ONE Administration Non-Formulary Medication 1 each 01/18/25 02:39 Hold Narcotic Analgesics/Sedatives 1 Each Each MC 01/19/25 02:38 PRN PRN neuraxial orders Ondansetron HCl 4 mg 01/18/25 02:39 01/18/25 03:24 Ondansetron Hcl 4 Mg/2 Ml Vial IV 01/19/25 02:38 4 mg PRN PRN Administration NAUSEA Oxycodone/Acetaminophen 1 - 2 tab 01/18/25 02:39 Oxycodone Hcl/Apap 5 Mg/325 Mg Tablet PO 01/19/25 02:38 Q4H PRN PRN MODERATE PAIN Oxytocin Confirm 01/18/25 00:37 Oxytocin 10 Units/Ml 10 Units/Ml Vial Administered 01/18/25 00:38 Dose 20 units .ROUTE .STK-MED ONE Phenylephrine HCl Confirm 01/18/25 00:40 Phenylephrine 10 Mg/Ml Vial Administered 01/18/25 00:41 Dose 10 mg .ROUTE .STK-MED ONE Rho Immune Globulin 300 mcg 01/18/25 11:00 01/18/25 20:03 Rho(D) Immune Globulin 300 Mcg/Syr Ml IM 01/18/25 11:01 300 mcg .ONCE ONE Administration Ropivacaine Confirm 01/18/25 01:34 Ropivacaine Hcl 5 Mg/Ml 30ml Vial Administered 01/18/25 01:35 Dose 150 mg .ROUTE .STK-MED ONE Multi-Disciplinary Progress Notes: Multi-Disciplinary Progress Notes 01/20/25 05:48 Respiratory Note by Estrella Jeffery Nurse called for RT to check on pt. She was on 2L NC sating 94-95%. HR 120, RR 20. Lung sounds clear. Pt doesn't seem to be in respiratory distress at this time. Initialized on 01/20/25 05:48 - END OF NOTE Assessment/Plan (1) Active labor at term Current Visit: Yes Status: Acute Code(s): [id number] - (2) History of delivery Current Visit: Yes Status: Acute Code(s): Z98.891 - HISTORY OF UTERINE SCAR FROM PREVIOUS SURGERY (3) Methamphetamine abuse in remission Current Visit: Yes Status: Acute Code(s): F15.11 - OTHER STIMULANT ABUSE, IN REMISSION (4) Preeclampsia in period Current Visit: Yes Status: Acute Code(s): O14.95 - UNSPECIFIED PRE- ECLAMPSIA, COMPLICATING THE PUERPERIUM (5) Cough Current Visit: Yes Status: Acute Assessment & Plan: see orders, flu/covid/rsv and chest xray ordered. Code(s): R05.9 - COUGH, UNSPECIFIED
[2025-01-20 09:05] LABS: BASOPHIL % 0.2 % (0.1-1.2); Basophil (Absolute #) 0.02 x10^3/uL (0.01-0.08); Eosinophil (Absolute #) 0.10 x10^3/uL (0.04-0.36); Hematocrit 26.7 % (34.1-44.9); Hemoglobin 8.2 g/dL (11.2-15.7); IMMATURE GRAN # 0.12 x10^3u/L (0.001-0.031); IMMATURE GRAN % 1.0 % (0.001-0.429); Lymphocyte (Absolute #) 1.14 x10^3/uL (1.18-3.74); Mean Corpuscular Hemoglobin 27.0 pg (25.6-32.2); Mean Corpuscular Hgb Concent. 30.7 g/dL (32.2-35.5); Monocyte (Absolute #) 0.46 x10^3/uL (0.24-0.86); NUCLEATED RBC # 0.00 x10^3u/L (0.00-0.012); NUCLEATED RBC % 0.0 % (0.00-0.2); Platelet Count 329 x10^3/uL (182-369); Red Blood Count 3.04 x10^6/uL (3.93-5.22); White Blood Count 11.7 x10^3/uL (3.98-10.04)
[2025-01-20 09:41] LABS: INFLUENZA A NEGATIVE (NEGATIVE); INFLUENZA B NEGATIVE (NEGATIVE); RESPIRATORY SYNCTIAL VIRUS NEGATIVE (NEGATIVE); SARS-CoV-2 Xpert Express NEGATIVE (NEGATIVE)
--- NOTE | 2025-01-20 09:44 | XRAY ---
CLINICAL HISTORY: cough, post-op COMPARISON: No prior studies are available for comparison. TECHNIQUE: An X-ray image of the chest was obtained in the AP projection. FINDINGS: Pulmonary Parenchyma: The lungs are clear bilaterally. There is no evidence of consolidation, collapse, or focal opacities. No pulmonary nodules are identified. There is no evidence of pleural effusion or pleural thickening. Heart and Mediastinum: The heart size and shape are normal. There is no mediastinal widening or masses. No hilar or mediastinal lymphadenopathy is seen. Bony Thorax: There is no acute fracture. There is an old, malunited fracture in the right clavicle. Soft Tissues: The soft tissues overlying the chest wall are unremarkable. IMPRESSION: No acute cardiopulmonary abnormalities are identified. Electronically Signed by: Darwin Nam MD. (01/20/2025 09:42:53 EDT)
[2025-01-20 09:52] LABS: Calcium 7.6 mg/dL (8.4-10.2); Carbon Dioxide 26 mmol/L (22-30); Creatinine 1 0.73 mg/dL (0.52-1.04); EST GLOMERULAR FILTRATION RATE 112.7 ML/MIN; Glucose 103 mg/dL (74-106); Potassium 4.2 mmol/L (3.5-5.1); SGOT/AST 21 U/L (14-36); SGPT/ALT 11 U/L (0-35); Total Protein 6.0 g/dL (6.3-8.2)
[2025-01-20] MEDS: MOTRIN 400 MG PO PRN (11:32)
[2025-01-21 03:11] VITALS: O2SAT 97
[2025-01-21] MEDS: Adacel Vial IM ONE (06:03)
--- NOTE | 2025-01-21 08:39 | PCM.DS ---
Discharge Summary Date of Admission: 01/17/25 22:25 Admitting Physician: LEIDY DOS SANTOS Consults: Consults on Case 01/18/25 02:39 Notify Anesthesia Provider PRN 01/18/25 08:22 Navigation ONCE Primary Care Provider: LEIDY DOS SANTOS Allergies Allergies latex Adverse Reaction (Verified 01/17/25 23:34) [facility] Summary - Hospital Course Hospital Course: patient arrived in active labor at term, hx prior so had repeat c- section. developed hypertension with elevated protein:creat ratio. received IV magnesium overnight and massive diuresis occurred. she also has cough/congestion, flu/covid/rsv swab were negative and chest xray clear. she is feeling better, still has some cough but doing well , longtime hx tobacco use. - Vitals & Intake/Output Vital Signs: Vital Signs Temperature 98.6 F 01/21/25 03:10 Pulse Rate 111 H 01/21/25 03:10 Respiratory Rate 18 01/21/25 03:10 Blood Pressure 130/88 01/21/25 03:10 O2 Sat by Pulse Oximetry 97 01/21/25 08:26 Intake & Output: Intake & Output 01/18/25 01/19/25 01/20/25 01/21/25 11:59 11:59 11:59 11:59 Intake Total 50 3704 1600 Output Total 516 353 8438 Balance -950 -400 -1701 1600 Weight 58.967 kg - Lab Result Diagrams: 01/20/25 09:05 01/20/25 09:05 Lab Results-Last 24 Hrs: Lab Results-Last 24 Hours 01/20/25 01/20/25 01/20/25 Range/Units 09:05 09:05 09:05 WBC 11.7 H (3.98-10.04) x10^3/uL RBC 3.04 L (3.93-5.22) x10^6/uL Hgb 8.2 L (11.2-15.7) g/dL Hct 26.7 L (34.1-44.9) % MCV 87.8 (79.4-94.8) fL MCH 27.0 (25.6-32.2) pg MCHC 30.7 L (32.2-35.5) g/dL RDW 14.3 (11.7-14.4) % Plt Count 329 (182-369) x10^3/uL MPV 9.1 L (9.4-12.3) fL Gran % 84.2 H (34.0-71.1) % Immature Gran % (Auto) 1.0 H (0.001-0.429) % Nucleat RBC Rel Count 0.0 (0.00-0.2) % Eos # (Auto) 0.10 (0.04-0.36) x10^3/uL Immature Gran # (Auto) 0.12 H (0.001-0.031) x10^3u/L Absolute Lymphs (auto) 1.14 L (1.18-3.74) x10^3/uL Absolute Monos (auto) 0.46 (0.24-0.86) x10^3/uL Absolute Nucleated RBC 0.00 (0.00-0.012) x10^3u/L Lymphocytes % 9.8 L (19.3-51.7) % Monocytes % 3.9 L (4.7-12.5) % Eosinophils % 0.9 (0.7-5.8) % Basophils % 0.2 (0.1-1.2) % Absolute Granulocytes 9.84 H (1.56-6.13) x10^3/uL Basophils # 0.02 (0.01-0.08) x10^3/uL Sodium 138 (135-145) mmol/L Potassium 4.2 (3.5-5.1) mmol/L Chloride 108 H (98-107) mmol/L Carbon Dioxide 26 (22-30) mmol/L Anion Gap 8.8 (5-15) MEQ/L BUN 5 L (7-17) mg/dL Creatinine 0.73 (0.52-1.04) mg/dL Estimated GFR 112.7 ML/MIN Glucose 103 (74-106) mg/dL Calcium 7.6 L (8.4-10.2) mg/dL Total Bilirubin < 0.10 L (0.2-1.3) mg/dL AST 21 (14-36) U/L ALT 11 (0-35) U/L Alkaline Phosphatase 143 H (38-126) U/L Serum Total Protein 6.0 L (6.3-8.2) g/dL Albumin 3.0 L (3.5-5.0) g/dL Influenza Type A Ag NEGATIVE (NEGATIVE) Influenza Type B Ag NEGATIVE (NEGATIVE) RSV (PCR) NEGATIVE (NEGATIVE) SARS-CoV-2 (PCR) NEGATIVE (NEGATIVE) Micro Results-Entire Visit: Microbiology 01/19/25 16:45 Urine Culture - Final Urine, Void <10K NORMAL SKIN ZEE PROBABLE SKIN CONTAMINANT 01/18/25 01:12 Urine Culture - Final Urine, Catheterized <10K NORMAL SKIN ZEE PROBABLE SKIN CONTAMINANT 01/17/25 22:30 Urine Culture - Final Urine, Void <10K NORMAL SKIN ZEE PROBABLE SKIN CONTAMINANT - Radiology Exams Ordered Rad Exams-Entire Visit: Radiology Procedures Category Date Time Status CHEST 1 VIEW (PORTABLE) Stat Exams 01/20/25 08:53 Completed - Procedures and Test Procedures and Tests throughout Hospitalization: Therapy Orders & Screens 01/17/25 23:34 Smoking Cessation Education ONCE Comment: Diagnosis: Labor Smoking Status: Current every day smoker How long have you smoked: 16 years Have you smoked in the past 12 months: Yes 01/18/25 02:00 Standby ROUTINE Comment: Diagnosis: Labor 01/20/25 05:45 Oxygen Nasal Cannula 2 lpm Comment: Diagnosis: Labor Discharge Exam General Appearance: no apparent distress Respiratory Exam: normal breath sounds, lungs clear, No respiratory distress Cardiovascular Exam: regular rate/rhythm, normal heart sounds Gastrointestinal/Abdomen Exam: soft, other (dressing clean, dry, intact) Extremity Exam: normal inspection, normal range of motion Skin Exam: normal color, warm, dry Final Diagnosis/Problem List - Final Discharge Diagnosis/Problem (1) Active labor at term Current Visit: Yes Status: Acute Code(s): FGU8132 - (2) History of delivery Current Visit: Yes Status: Acute Code(s): Z98.891 - HISTORY OF UTERINE SCAR FROM PREVIOUS SURGERY (3) Methamphetamine abuse in remission Current Visit: Yes Status: Acute Code(s): F15.11 - OTHER STIMULANT ABUSE, IN REMISSION (4) Preeclampsia in period Current Visit: Yes Status: Acute Code(s): O14.95 - UNSPECIFIED PRE- ECLAMPSIA, COMPLICATING THE PUERPERIUM (5) Cough Current Visit: Yes Status: Acute Assessment & Plan: viral, treat symptoms. Code(s): R05.9 - COUGH, UNSPECIFIED - Discharge Disposition: Home, Self-Care Condition: Stable Prescriptions: Continue Nitrofurantoin Monohyd/M-Cryst [Nitrofurantoin Ziebach-Mcr 100 mg] 100 mg PO DAILY Hydroxyzine HCl 25 mg [Atarax 25 mg] 25 mg PO DAILY Pnv No.95/Ferrous Fum/Folic AC [ Vitamin Tablet] 1 tab PO DAILY Famotidine 20 mg [Pepcid 20 MG] 20 mg PO DAILY Follow up with: LEIDY DOS SANTOS MD [Primary Care Provider, [facility]] - 1 Week
[2025-01-21 12:54] VITALS: BP 123/82; PULSE 93; RESP 16; TEMP 98
== END 2025-01-21 10:55 | disposition home or self-care (01) | DRG 788 ==
LOC: OB 22:25 → OBSVTOIN 22:25
PROVIDERS: ADMIT Family Medicine; ATTEND Family Medicine
PROC: 10D00Z1 Extraction of Products of Conception, Low, Open Approach (ICD-10-PCS; principal; 2025-01-18)
DX: O34.219 Maternal care for unspecified type scar from previous cesarean delivery (principal); O16.5 Unspecified maternal hypertension, complicating the puerperium; Z59.82 Transportation insecurity; Z3A.39 39 weeks gestation of pregnancy; Z37.0 Single live birth; D50.0 Iron deficiency anemia secondary to blood loss (chronic); F15.11 Other stimulant abuse, in remission; R05.8 Other specified cough; F17.200 Nicotine dependence, unspecified, uncomplicated